=== PATIENT | female | born 1995 | race Caucasian/White ===

== ENCOUNTER 2022-11-02 15:30 | Inpatient (IN) | payer BC ==
[~2022-11-02 15:30] MED LIST: ROPIVACAINE 5 MG/ML 20 ML AMPULE ONE; SODIUM CHLORIDE 0.9% 100 ML BAG ONE; fentaNYL (PF) 50 MCG/ML 5 ML AMP ONE
[2022-11-02] MEDS ORDERED: miSOPROStoL 200 MCG TAB PO PRN (17:32)
[2022-11-02] MEDS ORDERED: OXYTOCIN 10 UNIT/ML 1 ML VIAL IM PRN (17:32)
[2022-11-02] MEDS ORDERED: CARBOPROST TROMETHAMINE 250 MCG/ML 1 ML AMP IM PRN (17:32)
[2022-11-02] MEDS ORDERED: LIDOCAINE 0.5% (PF) 5 MG/ML (50 ML SDV) SQ PRN (17:32)
[2022-11-02] MEDS ORDERED: METHYLERGONOVINE 0.2 MG/ML 1 ML AMP IM PRN (17:32)
[2022-11-02] MEDS ORDERED: TERBUTALINE 1 MG/ML VIAL SQ PRN (17:32)
[2022-11-02] MEDS ORDERED: TRANEXAMIC ACID IN NACL,ISO-OS 1,000 MG in EMPTY BAG 1 BAG IV PRN (17:32)
[2022-11-02] MEDS ORDERED: OXYTOCIN 30 UNITS/500 ML NS 30 UNIT in SALINE 1 500ML.BAG IV SCH (17:45)
[2022-11-02 17:54] LABS: Basophils % (A) 0 %; Eosinophils # (A) 0.1 k/uL (0-0.7); Eosinophils % (A) 1 %; HGB 13.9 gm/dL (11.4-16.0); Lymphocytes # (A) 1.9 k/uL (1.0-4.8); Lymphocytes % (A) 18 %; MCH 32.4 pg (25.0-35.0); MCHC 34.8 g/dL (31.0-37.0); MCV 93.1 fL (80.0-100.0); Mean Platelet Volume 8.9; Monocytes # (A) 0.6 k/uL (0-1.0); Monocytes % (A) 6 %; Neutrophils # (A) 7.6 k/uL (1.3-7.7); Neutrophils % (A) 72 %; Platelet Count 222 k/uL (150-450); RBC 4.29 m/uL (3.80-5.40); RDW 13.1 % (11.5-15.5); WBC 10.5 k/uL (3.8-10.6)
[2022-11-02] MEDS: LACTATED RINGERS 1,000 ML IV SCH (18:05)
--- NOTE | 2022-11-02 20:11 | P.HPOB ---
History of Present Illness H&P Date: 11/02/22 Chief Complaint: Spontaneous rupture membranes This is a 27-year-old female 1 para 0 with an estimated date of confinement of 10/27/2022, estimated gestational age of 40-6/7 weeks, who presented with spontaneous rupture membranes at approximately 9 AM this morning. She arrived approximately 4 PM and stated that she was feeling irregular contractions. Her care has been with Dr. Ho and has been uncomplicated per patient. She has had several gushes of clear fluid since the original spontaneous rupture of membranes. She prefers not to have any int ervention in labor if at all possible. labs: Group B streptococcus-negative One hour Glucola-elevated at 140, 3 hour Glucola-within normal limits Hepatitis B surface antigen-negative RPR-nonreactive Rubella-immune Blood type-AB+ In a body screen-negative HIV-nonreactive Hemoglobin-14.7 Toxoplasma-negative Random glucose-70 GC/Chlamydia/Trichomonas-negative Obstetrical history: 1 para 0 Gynecologic history: No history of sexual transmitted diseases Social history: She is . 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 Review of Systems Constitutional: Denies chills, Denies fever Eyes: denies blurred vision, denies pain Ears, nose, mouth and throat: Denies headache, Denies sore throat Cardiovascular: Denies chest pain, Denies shortness of breath Respiratory: Denies cough Gastrointestinal: Reports abdominal pain (Irregular contractions) Genitourinary: Reports pelvic pain Musculoskeletal: Denies myalgias Integumentary: Denies pruritus, Denies rash Neurological: Denies numbness, Denies weakness Psychiatric: Denies anxiety, Denies depression Past Medical History Past Medical History: No Reported History History of Any Multi-Drug Resistant Organisms: None Reported Additional Past Surgical History / Comment(s): Bostic tooth extraction Past Anesthesia/Blood Transfusion Reactions: No Reported Reaction Past Psychological History: No Psychological Hx Reported Smoking Status: Never smoker Past Alcohol Use History: None Reported Past Drug Use History: None Reported - Past Family History Father Additional Family Medical History / Comment(s): Polymyocytis (autoimmune) Medications and Allergies Home Medications Medication Instructions Recorded Confirmed Type RX: Pnv No.175/Iron Fum/Folic Acid 1 capsule PO DAILY 11/02/22 11/02/22 History [ Complete Tablet] Allergies Allergy/AdvReac Type Severity Reaction Status Date / Time No Known Allergies Allergy Verified 11/02/22 15:55 Exam Osteopathic Statement: *. No significant issues noted on an osteopathic structural exam other than those noted in the History and Physical/Consult. Vital Signs Temp Pulse Resp BP Pulse Ox 11/02/22 17:12 98.6 F 83 16 133/87 100 11/02/22 15:55 98.3 F 87 16 134/88 100 Intake and Output 11/02/22 11/02/22 11/02/22 06:59 14:59 22:59 Other: Weight 77.111 kg Gen.: Well-developed well-nourished pleasant female in no acute distress HEENT: Within normal limits Heart: Regular rate and rhythm Lungs: Clear to auscultation bilaterally Abdomen: Cervix: On admission is 1 cm/70%/-1 station, upon my arrival she is starting to feel contractions and cervix is now 1-1/2-2/80%/-1 station. A second bag is palpated and artificial rupture membranes of the second bag is carried out with a large amount of clear fluid noted. heart tones: Category 1 Contractions: Very irregular approximately every 10-15 minutes. Shortly after rupture of second bag, contractions are now every 2 minutes. Extremities: Negative Homans Results Result Diagrams: 11/02/22 17:39 Assessment and Plan (1) 40 weeks gestation of Current Visit: Yes Status: Acute Code(s): Z3A.40 - 40 WEEKS GESTATION OF SNOMED Code(s): 74937205 (2) Spontaneous rupture of membranes Current Visit: Yes Status: Acute Code(s): [id number] - SNOMED Code(s): 219520115 Plan: Admission for active labor. Active management. Patient is agreeable to adding oxytocin if her contractions to space out or she is not making change. She would like to avoid any pain medication if she is able to tolerate labor pains but is open to options if she requests. Patient is aware that she may need to start antibiotics at approximately 18 hours of rupture if she is still in labor.
[2022-11-03] MEDS: LACTATED RINGERS 1,000 ML IV SCH ×2 (02:25→22:03)
[2022-11-03] MEDS ORDERED: AMPICILLIN 2,000 MG in SODIUM CHLORIDE 0.9% 100 ML IVPB STA (02:45)
[2022-11-03] MEDS: AMPICILLIN 1,000 MG in SODIUM CHLORIDE 0.9% 50 ML IVPB SCH ×2 (06:50→22:04)
--- NOTE | 2022-11-03 12:02 | P.PROBDLV ---
Vaginal Delivery Note - . Vaginal Delivery Note: The patient presented with spontaneous rupture membranes at approximately 9 AM on 11/02/2022. At her time of arrival, she was not michel regularly. She proceeded with nipple stimulation to start her contractions. When I arrived at approximately 7 PM, I was able to palpate another bag of water which was artificially ruptured and clear fluid was again noted. At this time she was noted to be 2 cm. She did start to contract on her own much better and more regularly after this. She was started on ampicillin at about 18 hours of rupture due to prolonged rupture of membranes. She did receive epidural anesthesia when she reaching 5 cm. She was started on oxytocin augmentation of labor once her contractions did space out. She reached complete dilation at approximately 9:47 AM on 11/03/2022. She began pushing and pushed for approximately 2 hours. 's head came to a crown. One further push, the 's head delivered across the perineum followed by the anterior shoulder. Nose and mouth were bulb suctioned at the perineum. With one further push, the remainder the was delivered and placed on mother's abdomen. Cord was allowed to stop pulsating and then cord was clamped and cut. Mother was allowed to black with baby. A viable female infant was noted with scores of 9 at 1 minute and 9 at 5 minutes and infant weight of 8 lbs. 0 oz. Placenta delivered shortly thereafter, intact, with three-vessel cord. Uterus contracted fairly well after oxytocin was given and uterine massage was carried out. A very small piece of membrane was manually removed. Uterus did firm up fairly well. Inspection of the perineum revealed no perineal lacerations. Estimated blood loss is approximately 150 mL's. Both mother and are in stable condition.
[2022-11-03] MEDS ORDERED: OXYTOCIN 30 UNITS/500 ML NS 30 UNIT in SALINE 1 500ML.BAG IV SCH (12:22)
[2022-11-03] MEDS ORDERED: ZOLPIDEM 5 MG TAB PO PRN (12:22)
[2022-11-03] MEDS ORDERED: diphenhydrAMINE 50 MG CAP PO PRN (12:22)
[2022-11-03] MEDS ORDERED: diphenhydrAMINE 25 MG CAP PO PRN (12:22)
[2022-11-03] MEDS ORDERED: HYDROCORTISONE 2.5% RECTAL CREAM 30 GM TUBE RECTAL PRN (12:22)
[2022-11-03] MEDS ORDERED: ACETAMINOPHEN TAB 325 MG TAB PO PRN (12:22)
[2022-11-03] MEDS ORDERED: BENZOCAINE/MENTHOL SPRAY 1 GM/SPRAY AEROSOL TOPICAL PRN (12:22)
[2022-11-03] MEDS ORDERED: diphenhydrAMINE 50 MG/ML 1 ML VIAL IVP PRN ×2 (12:22)
[2022-11-03] MEDS ORDERED: SIMETHICONE 80 MG CHEWABLE PO PRN (12:22)
[2022-11-03] MEDS ORDERED: LANOLIN CREAM 5 GM TUBE TOPICAL PRN (12:22)
[2022-11-03] MEDS: SENNOSIDES-DOCUSATE SODIUM 1 EACH TAB PO SCH (20:22)
[2022-11-04] MEDS: IBUPROFEN 600 MG TAB PO PRN ×2 (05:24→12:16)
--- NOTE | 2022-11-04 06:15 | P.PNOBGVD ---
Subjective - Subjective Patient reports: Reports appetite normal, Reports voiding normally, Reports pain well controlled, Reports ambulating normally : doing well Objective - Latest Vital Signs Latest vital signs: Vital Signs Temp Pulse Resp BP Pulse Ox 11/03/22 22:05 98.9 F 97 14 126/79 94 L 11/03/22 16:00 98.3 F 97 17 114/75 11/03/22 13:51 97.9 F 75 17 115/64 11/03/22 13:21 88 17 117/70 11/03/22 12:51 100 17 117/75 11/03/22 12:36 85 16 121/72 11/03/22 12:21 88 17 117/70 11/03/22 12:06 98.8 F 84 17 122/77 11/03/22 11:51 101 H 17 135/83 Intake and Output 11/03/22 11/03/22 11/04/22 14:59 22:59 06:59 Intake Total 1199.900 Output Total 679 Balance 520.900 Intake: IV 1000 Intake, IV Titration 199.900 Amount Oxytocin 30 Units/500 ml 199.900 Ns 30 unit In Saline 1 500ml.bag @ Per Protocol IV .Q0M [facility] Rx#:[id number] Output: Urine 400 Output, Quantitative 279 Blood Loss Other: # Voids 2 - Exam Lungs: bilateral: normal Chest: Normal S1, Normal S2 Extremities: Present: normal Abdomen: Present: normal appearance, soft Uterus: Present: normal, firm Assessment and Plan Assessment: Post day #1. Patient is resting without complaints and wishes to go home. Vital signs are stable she is afebrile. Uterus is firm nontender and she is having normal lochia. CBC is pending at time of this dictation. My impression is this is a normal post course. Plan is to continue routine care discharge home later today. (1) Postmaturity , 40-42 weeks gestation Current Visit: No Status: Acute Code(s): O48.0 - POST-TERM SNOMED Code(s): 82362173323766
--- NOTE | 2022-11-04 06:25 | P.DS ---
Providers Date of admission: 11/02/22 16:00 Expected date of discharge: 11/04/22 Attending physician: Uri Ho Primary care physician: Stated None - Discharge Diagnosis(es) (1) Postmaturity , 40-42 weeks gestation Current Visit: No Status: Acute Hospital Course: Please see dictated H&P per Dr. Patel on this patient's admission. In brief sum gin this pleasant 27-year-old 1 para 0 female 40-6/7 weeks gestation who is admitted to labor and delivery with spontaneous rupture membranes. Patient's subsequent goes on have a vaginal delivery viable female infant. Please see dictated delivery note. day #1 patient wishes to go home felt be stable for discharge home follow up with me in 6 weeks. Procedures: Normal vaginal delivery Patient Condition at Discharge: Good Plan - Discharge Summary New Discharge Prescriptions: New Ibuprofen [Motrin] 600 mg PO Q6HR PRN #30 tab PRN Reason: Mild Pain (Scale 1 To 3) No Action Pnv No.175/Iron Fum/Folic Acid [ Complete Tablet] 1 capsule PO DAILY Discharge Medication List Pnv No.175/Iron Fum/Folic Acid [ Complete Tablet] 1 capsule PO DAILY 11/02/22 [History] Ibuprofen [Motrin] 600 mg PO Q6HR PRN #30 tab 11/04/22 [Rx] Follow up Appointment(s)/Referral(s): Uri Ho MD [STAFF PHYSICIAN] - 6 Weeks Patient Instructions/Handouts: Vaginal Delivery (DC) Activity/Diet/Wound Care/Special Instructions: No intercourse or anything per vagina for 6 weeks. Please call if any fever, chills, excessive vaginal bleeding, and/or abdominal pain. Discharge Disposition: HOME SELF-CARE
[2022-11-04 06:49] LABS: Basophils % (A) 0 %; Eosinophils # (A) 0.1 k/uL (0-0.7); Eosinophils % (A) 1 %; HCT 37.7 % (34.0-46.0); HGB 12.9 gm/dL (11.4-16.0); Lymphocytes # (A) 2.2 k/uL (1.0-4.8); Lymphocytes % (A) 14 %; MCH 32.8 pg (25.0-35.0); MCHC 34.2 g/dL (31.0-37.0); MCV 95.9 fL (80.0-100.0); Mean Platelet Volume 8.5; Monocytes # (A) 1.1 k/uL (0-1.0); Monocytes % (A) 7 %; Neutrophils # (A) 12.3 k/uL (1.3-7.7); Neutrophils % (A) 77 %; Platelet Count 185 k/uL (150-450); RBC 3.93 m/uL (3.80-5.40); RDW 12.6 % (11.5-15.5)
[2022-11-04] MEDS: SENNOSIDES-DOCUSATE SODIUM 1 EACH TAB PO SCH (07:44)
[2022-11-04] MEDS ORDERED: PRENATAL VIT-IRON-FOLIC ACID 1 EACH TABLET PO SCH (09:00)
[2022-11-04 09:04] VITALS: BP 115/77; PULSE 68; RESP 16; TEMP 97.7
== END 2022-11-04 12:15 | disposition home or self-care (01) | DRG 807 ==
LOC: FBPOP 15:30 → 4FBP 16:00
PROVIDERS: ADMIT Obstetrics & Gynecology; ATTEND Obstetrics & Gynecology
PROC: 10907ZC Drainage of Amniotic Fluid, Therapeutic from Products of Conception, Via Natural or Artificial Opening (ICD-10-PCS; 2022-11-02)
PROC: 10E0XZZ Delivery of Products of Conception, External Approach (ICD-10-PCS; principal; 2022-11-03)
PROC: 10D17Z9 Manual Extraction of Products of Conception, Retained, Via Natural or Artificial Opening (ICD-10-PCS; principal; 2022-11-03)
DX: O42.02 Full-term premature rupture of membranes, onset of labor within 24 hours of rupture (principal); O73.1 Retained portions of placenta and membranes, without hemorrhage; O48.0 Post-term pregnancy; Z3A.40 40 weeks gestation of pregnancy; Z37.0 Single live birth
CPT/HCPCS: 59025; 84112; 85025; 86850; 86900; 86901; 88307; 99213